=== PATIENT | female | born 2000 | race Caucasian/White ===

== ENCOUNTER 2021-01-24 06:00 | Inpatient (IN) ==
[2021-01-24] MEDS ORDERED: ONDANSETRON 4 MG TAB.RAPDIS PO PRN (06:20)
[2021-01-24] MEDS ORDERED: OXYTOCIN/0.9 % SODIUM CHLORIDE 30 UNITS/500 ML BAG IV ONE ×2 (06:20→16:48)
[2021-01-24] MEDS ORDERED: BUTORPHANOL TARTRATE 2 MG/ML VIAL IV PRN ×2 (06:20)
[2021-01-24] MEDS ORDERED: LIDOCAINE HCL 50 ML VIAL PERI PRN (06:20)
[2021-01-24] MEDS ORDERED: RINGER'S SOLUTION,LACTATED 1,000 ML IV ONE (06:20)
[2021-01-24] MEDS: RINGER'S SOLUTION,LACTATED 1,000 ML IV PRN ×2 (06:29→13:54)
[2021-01-24 07:00] LABS: Cocaine Ur Negative (NEGATIVE); Urine Barbiturate Negative (NEGATIVE); Urine Benzodiazepines Negative (NEGATIVE); Urine Opiates Negative (NEGATIVE); Urine PCP Negative (NEGATIVE); Urine THC Positive (NEGATIVE)
[2021-01-24] MEDS ORDERED: ONDANSETRON HCL/PF 2 MG/ML VIAL IV PRN (12:20)
[2021-01-24] MEDS ORDERED: NALOXONE HCL 1 MG/1 ML SYRG IV PRN (12:20)
[2021-01-24] MEDS ORDERED: BUPIVACAINE HCL/0.9 % NACL/PF 250 ML EP PRN (12:20)
[2021-01-24] MEDS ORDERED: fentaNYL CITRATE/PF 50 MCG/ML AMPUL IT SCH (12:30)
--- NOTE | 2021-01-24 12:44 | HP ---
Chief Complaint - Chief Complaint Date of Service: 01/24/21 Time of Service: 12:38 Chief Complaint: Induction of labor History of Present Illness: 20 year old at 39w 0d who presented to L&D for an elective IOL. She reports ctx on pitocin. Denies vb or lof. Fetus is active. Medical History (Last Reviewed 01/24/21 @ 12:39 by Faby Ayala MD) Chronic GERD Gastritis Surgical History: Surgical History (Last Reviewed 01/24/21 @ 12:39 by Faby Ayala MD) History of wisdom tooth extraction Family History: Family History (Last Reviewed 01/24/21 @ 12:39 by Faby Ayala MD) Mother Alive and well Father Heart disease Social History: (Last Updated 01/24/21 @ 12:40 by Faby Ayala MD) Social History: adopted: Yes Marital status: Single household members: adopted family current occupational status: unemployed current occupational exposures/hazards: No Highest level of school completed/degree received: high school graduate Service: No Tobacco: Smoking Status: Former smoker tobacco type: cigarettes Alcohol: alcohol intake: never Substance Use: substance use type: marijuana Dietary Habits: caffeine: No Review Of Systems (GEN) - Review of Systems Generalized/Overall Review: Present: No Symptoms Reported Genitourinary: Present: Other - contractions Misc: All systems neg except as marked Allergies/Adverse Reactions: Allergies Allergy/AdvReac Type Severity Reaction Status Date / Time No Known Allergies Allergy Verified 01/17/21 16:43 Home Medications: HOME MEDICATIONS Vits96/Iron Fum/Folic [ S] 1 tab PO DAILY 01/24/21 [Last Taken Unknown] Exam - Exam Vital Signs: Vital Signs - Last Taken Temp 36.5 C 01/24/21 06:30 Pulse 93 01/24/21 06:30 Resp 18 01/24/21 06:30 BP 134/81 01/24/21 06:30 Pulse Ox 97 01/24/21 06:30 Constitutional: Present: Alert, Oriented x3, Cooperative ENT Exam: Present: hearing grossly normal Eye Exam: bilateral eye: normal inspection Neck: Present: normal inspection Back Exam: Present: normal inspection Breasts: Present: Exam deferred Respiratory: Present: lungs clear, normal breath sounds Cardiovascular/Chest: Present: regular rate, rhythm Abdomen: Present: soft, nontender, nondistended /Rectal: Present: Other - 4/80/-1 AROM for clear fluid Extremity: Present: non-tender, no calf tenderness Skin Exam: Present: normal color, warm/dry, no cyanosis Neurologic: Present: alert, normal mood/affect, oriented x 3 Appearance: Present: appropriate appearance, appropriate insight, neat, no memory impairment Eye contact: Present: cooperative, good eye contact, normal speech Thoughts: Present: normal thought pattern Diagnostic Studies: Abnormal Lab Results 01/24/21 Range/Units 06:25 Urine Marijuana (THC) Positive H (NEGATIVE) Laboratory Results Urine Opiates Screen Negative (NEGATIVE) 01/24/21 06:25 Barbiturate Screen Negative (NEGATIVE) 01/24/21 06:25 Ur Phencyclidine Scrn Negative (NEGATIVE) 01/24/21 06:25 Urine Amphetamine Negative (NEGATIVE) 01/24/21 06:25 U Benzodiazepines Scrn Negative (NEGATIVE) 01/24/21 06:25 Urine Cocaine Screen Negative (NEGATIVE) 01/24/21 06:25 Urine Marijuana (THC) Positive (NEGATIVE) H 01/24/21 06:25 Blood Type O Positive 01/24/21 06:33 Antibody Screen Negative 01/24/21 06:33 Assessment/Plan - Narrative Narrative: 20 year old at 39w 0d 1. Elective IOL: on pitocin. AROM done for augmentation of labor 2. GBS negative 3. UDS + THC during the and on admission to L&D: send cord segment - Assessment/Plan (1) Encounter for induction of labor Problem: Acute (2) 39 weeks gestation of Problem: Acute (3) History of maternal Chlamydia infection, currently in third trimester Problem: Acute (4) Rubella non-immune status, antepartum Problem: Acute (5) Rh(D) positive Problem: Acute (6) History of marijuana use Problem: Acute
--- NOTE | 2021-01-24 13:00 | ANES ---
Anesthesia Pre Procedure Eval Vitals/Labs: Last Vital Signs Temp 36.5 C 01/24/21 06:30 Pulse 93 01/24/21 06:30 Resp 18 01/24/21 06:30 BP 134/81 01/24/21 06:30 Pulse Ox 97 01/24/21 06:30 HOME MEDICATIONS Vits96/Iron Fum/Folic [ S] 1 tab PO DAILY 01/24/21 [Last Taken Unknown] Allergies/Adverse Reactions: Allergies Allergy/AdvReac Type Severity Reaction Status Date / Time No Known Allergies Allergy Verified 01/17/21 16:43 - Planned Procedure Planned Procedure: INDUCTION Medication List Reviewed:: Yes Allergies Verified: Yes Medical History (Last Reviewed 01/24/21 @ 12:58 by Julio Lieberman CRNA) Chronic GERD Gastritis Surgical History (Last Reviewed 01/24/21 @ 12:58 by Julio Lieberman CRNA) History of wisdom tooth extraction Family History (Last Reviewed 01/24/21 @ 12:58 by Julio Lieberman CRNA) Mother Alive and well Father Heart disease - Family Anesthesia History Family History:: no untoward family reactions to anesthesia, no familial bleeding tendencies, no family history of clotting disorders, no family history of premature - Airway/Neck/Teeth Within Normal Limits:: Yes Teeth Condition: intact Neck Exam: full range of motion Mallampatti Score: 2 Thyromental (T-M) distance: > 6 cm Mandibulo Hyoid distance: > 3 cm - Respiratory Respiratory Physical: crackles Smoking Status: Current every day smoker Discussed smoking cessation including day of surgery: Yes Sleep Apnea currently treated: No Sleep Apnea by current assessment: No - Cardiovascular Tolerate Activity: Fair Heart Sounds: S1 & S2, Regular - Anesthesia Assessment and Plan ASA Class: PS, II, E Anesthesia Type Plan: Epidural - CSE for labor analgesia
--- NOTE | 2021-01-24 13:16 | ANES ---
Post Anesthesia Discharge - Transfer of Care Transfer of Care handoff given to nurse: Yes - Discharge from PACU Discharge from PACU when meets criteria: Yes - Comfortable post CSE.
--- NOTE | 2021-01-24 13:18 | ANES ---
Anesthesia Procedure Note Procedure Note: ANESTHESIA PROCEDURE NOTE Date of Procedure: 01/24/2021 Time of procedure: 11:55 AM. Performed by: TAPAN Wiley CRNA, MSN Manager Grocery: Veronika Wright RN. Preprocedure diagnosis: Active labor, labor pain. Post procedure diagnosis: Same. Procedure:Epidural for labor analgesia L3-4. Indications: Labor pain. Findings: See below. Details of the procedure: The patient was placed on the side of the bed in sitting positionand prepped with DuraPrep then draped in a sterile fashion. Lidocaine 1% was infiltrated to the skin and subcutaneous tissues at the level of the L3-4 interspace. An 18-gauge Touhy needle was used to approach the epidural space with loss of resistance technique. Once loss of resistance was achieved a 27-gauge spinal needle was passed through the epidural needle and CSF was contacted. After CSF returned, 20 mcg of fentanyl was injected in the spinal needle was removed the epidural catheter was then threaded approximately 4 cm in the epidural needle was removed. The catheter was taped in place and after careful aspiration 3 mL of 1.5% lidocaine with 1-200,000 epinephrine was injected without change in maternal heart rate or sensorium. . EBL: Minimal. Fluids: N/A. Specimen: N/A. Post procedure condition: The patient tolerated the procedure well with good relief. No complications were noted. Thank you for this consultation. Julio Lieberman CRNA, TAPAN, MSN
--- NOTE | 2021-01-24 13:31 | ANES ---
Post Anesthesia Assessment - Vital Signs Vitals: Last Vital Signs Temp 36.5 C 01/24/21 06:30 Pulse 93 01/24/21 06:30 Resp 18 01/24/21 06:30 BP 134/81 01/24/21 06:30 Pulse Ox 97 01/24/21 06:30 Airway Patency: Normal - Mental Status Level Of Consciousness: Awake, Alert, Appropriate - Pain Level Pain Score: 0 - N/V Assessment Nausea/Vomiting Presence: None Dehydration:: No
--- NOTE | 2021-01-24 16:09 | OR ---
Operative Report - Dictated Report Narrative: Date of delivery: 01/24/2021 Time of delivery: 1346 Gender: male weight: 3191 grams APGARS: 9/9 Procedure: Description of the procedure: The patient is a 20 year old at 39w0d who presented to L&D for an elective IOL. She received pitocin and AROM. She pr ogressed to complete dilation. She delivered a viable male in LEXIE presentation. The shoulders delivered without any difficulty followed by the rest of the . Terminal meconium was noted. Cord clampling was delayed for 60 seconds due to vigorous infant. The cord was clamped and cut. Cord blood was collected. The placenta was delivered by expression, intact, and without difficulty. A right vaginal laceration was repaired with a [id number] suture. Hemostasis was adequate. EBL: 200 mL Complications: none Specimens: cord blood
[2021-01-24] MEDS ORDERED: diphenhydrAMINE HCL 25 MG CAPSULE PO PRN (16:48)
[2021-01-24] MEDS ORDERED: HYDROCORTISONE 30 APPL TUBE TP PRN (16:48)
[2021-01-24] MEDS ORDERED: SENNOSIDES 8.6 MG TABLET PO PRN (16:48)
[2021-01-24] MEDS ORDERED: BISACODYL 10 MG SUPP.RECT RC PRN (16:48)
[2021-01-24] MEDS ORDERED: GLYCERIN/WITCH HAZEL LEAF 40 APPL BOX TP PRN (16:48)
[2021-01-24] MEDS ORDERED: oxyCODONE HCL/ACETAMINOPHEN 1 TAB TABLET PO PRN (16:48)
[2021-01-24] MEDS ORDERED: BENZOCAINE/MENTHOL 81 SPRAY CAN TP PRN (16:48)
[2021-01-24] MEDS: DOCUSATE SODIUM 100 MG CAPSULE PO SCH (21:16)
[2021-01-25] MEDS: IBUPROFEN 800 MG TABLET PO PRN ×2 (10:40→18:48)
[2021-01-25] MEDS: DOCUSATE SODIUM 100 MG CAPSULE PO SCH (10:40)
--- NOTE | 2021-01-25 16:52 | PN ---
Subjective - Date and Time Seen Date: 01/25/21 Time: 16:50 Subjective Narrative: Patient without complaints Objective Objective Narrative: See vitals - Review of Systems Generalized/Overall Review: Reports: No Symptoms Reported Neurological: Reports: No Symptoms Reported Misc: All systems neg except as marked - Vitals Vitals: Last Vital Signs Temp 36.7 C 01/25/21 07:58 Pulse 75 01/25/21 12:30 Resp 16 01/25/21 12:30 BP 121/64 01/25/21 12:30 Pulse Ox 98 01/25/21 12:30 - Exam Constitutional: Present: Alert, Oriented x3, Cooperative, No distress ENT Exam: Present: hearing grossly normal Neck: Present: normal inspection Abdomen: Present: soft, nontender, nondistended - fundus is firm Extremity: Present: non-tender, no calf tenderness Skin Exam: Present: normal color, warm/dry, no cyanosis Neurologic: Present: alert, normal mood/affect, oriented x 3 Appearance: Present: appropriate appearance, appropriate insight, neat, no memory impairment Eye contact: Present: cooperative, good eye contact, normal speech Thoughts: Present: normal thought pattern Cauti Physician Documentation - Urinary Catheter Management Urethral (Law) Urethral Indwelling: No Date of Insertion: 01/24/21 Time of Insertion: 13:30 Date of Removal: 01/24/21 Time of Removal: 15:30 Assessment/Plan Plan Narrative: PPD 1 s/p Doing well Discharge tomorrow - Problems/Diagnosis (1) Encounter for induction of labor Problem: Acute (2) 39 weeks gestation of Problem: Acute (3) History of maternal Chlamydia infection, currently in third trimester Problem: Acute (4) Rubella non-immune status, antepartum Problem: Acute (5) Rh(D) positive Problem: Acute (6) History of marijuana use Problem: Acute
[2021-01-26] MEDS: DOCUSATE SODIUM 100 MG CAPSULE PO SCH (03:12)
--- NOTE | 2021-01-26 06:52 | PN ---
Subjective - Date and Time Seen Date: 01/26/21 Time: 06:50 Subjective Narrative: Patient without complaints Objective Objective Narrative: See vitals - Review of Systems Generalized/Overall Review: Reports: No Symptoms Reported Genitourinary Symptoms: Reports: Other - vaginal bleeding normal Misc: All systems neg except as marked - Vitals Vitals: Last Vital Signs Temp 36.7 C 01/25/21 07:58 Pulse 84 01/26/21 03:05 Resp 16 01/26/21 03:05 BP 142/83 H 01/26/21 03:05 Pulse Ox 98 01/26/21 03:05 - Exam Constitutional: Present: Alert, Oriented x3, Cooperative, No distress ENT Exam: Present: hearing grossly normal Respiratory: Present: lungs clear Cardiovascular/Chest: Present: regular rate, rhythm Abdomen: Present: soft, nontender, nondistended Extremity: Present: non-tender, no calf tenderness Skin Exam: Present: normal color, warm/dry, no cyanosis Appearance: Present: appropriate appearance, appropriate insight, neat, no memory impairment Eye contact: Present: cooperative, good eye contact, normal speech Thoughts: Present: normal thought pattern Cauti Physician Documentation - Urinary Catheter Management Urethral (Law) Urethral Indwelling: No Date of Insertion: 01/24/21 Time of Insertion: 13:30 Date of Removal: 01/24/21 Time of Removal: 15:30 Assessment/Plan Plan Narrative: PPD 2 s/p Doing well Discharge today - Problems/Diagnosis (1) Encounter for induction of labor Problem: Acute (2) 39 weeks gestation of Problem: Acute (3) History of maternal Chlamydia infection, currently in third trimester Problem: Acute (4) Rubella non-immune status, antepartum Problem: Acute (5) Rh(D) positive Problem: Acute (6) History of marijuana use Problem: Acute
--- NOTE | 2021-01-26 06:53 | DS ---
OB Discharge Summary (1) Encounter for induction of labor Status: Acute (2) 39 weeks gestation of Status: Acute (3) History of maternal Chlamydia infection, currently in third trimester Status: Acute (4) Rubella non-immune status, antepartum Status: Acute (5) Rh(D) positive Status: Acute (6) History of marijuana use Status: Acute Delivery Date: 01/24/21 Delivery Time: 15:46 :: 1 Para:: 1 Gestational weeks:: 39 Gestational days:: 0 Intrapartum Procedures: Spontaneous Vaginal Delivery, Anesthesia - Epidural Procedures: None /OP Complications: No Complications Discharge Diagnosis: Term -Delivered, Other - vaginal laceration - Discharge Information Date of Discharge: 01/26/21 Hospital Course: The patient presented for an elective IOL. Delivery and course were uncomplicated Discharge Location: Home Disposition: Home self-care Activity on Discharge:: Activity as tolerated, Pelvic Rest Discharge Diet: General/regular food Complete Home Medications List: Complete Home Medication List: Vits96/Iron Fum/Folic [ S] 1 tab PO DAILY 01/24/21 - Plan Discharge to:: Home Comment:: Routine Discharge Instructions Follow up in office in:: Other - 4 weeks - [place] Information Weight (Grams): 3,191 Sex: Male Score 1 min: 9 Score 5 min: 9 Complications: None
[2021-01-26 07:19] VITALS: BP 131/83
== END 2021-01-26 12:00 | disposition home or self-care (01) | DRG 807 ==
LOC: OB 06:06
PROVIDERS: ADMIT Obstetrics & Gynecology; ATTEND Obstetrics & Gynecology